=== PATIENT | male | born 1980 | race Caucasian/White ===

== ENCOUNTER 2021-01-05 15:26 | Outpatient (CLI) | payer OTHER, SELFPAY ==
--- NOTE | ~2021-01-05 | XR_ITS ---
EXAMINATION: XR hip LT min 2V DATE: 01/05/2021 15:48 INDICATION: Left hip pain. TECHNIQUE: 2 views of left hip were obtained. COMPARISON: None. FINDINGS: Bone alignment is normal. No fracture. There is mild left hip osteoarthritis. IMPRESSION: 1. Mild left hip osteoarthritis. Reviewed, dictated and finalized at location A.
== END 2021-01-05 15:27 | disposition home or self-care (01) ==
LOC: CHSIMG 15:29
PROVIDERS: PCP Nurse Practitioner Family; Visit Provider Nurse Practitioner Family
DX: M25.552 Pain in left hip (principal)
CPT/HCPCS: 73502

== ENCOUNTER 2024-07-04 12:21 | Outpatient (CLI) | payer OTHER, SELFPAY ==
--- NOTE | ~2024-07-04 | US_ITS ---
Testicular ultrasound with doppler. Indication: Other specified disorder of male genitalia. Technique: Real-time sonography the scrotum was performed. Color flow Doppler and Doppler spectral an alysis were performed. Findings: The testes are homogeneous in echotexture bilaterally. There is no evidence of an intrates ticular mass. The right testis measures 5.1 x 3.1 x 2.9 cm and the left 4.0 x 2.4 x 2.9 cm. There is color-flow seen to both testes. Arterial and venous spectral waveforms are seen in both testes. There is no sonographic evidence of torsion. The head of the epididymis is visualized bilaterally and is within normal limits. Large right hydrocele present. Minimal left hydrocele. Impression: No testicular mass or torsion. Very large right hydrocele. Minimal left hydrocele. Reviewed, dictated and finalized at [facility]. T [employer] [address] MAN Impression: No testicular mass or torsion. Very large right hydrocele. Minimal left hydrocele.
== END 2024-07-04 12:22 | disposition home or self-care (01) ==
LOC: CHSIMG 12:23
PROVIDERS: PCP Family Medicine; Visit Provider Family Medicine
DX: N50.89 Other specified disorders of the male genital organs (principal); N43.3 Hydrocele, unspecified
CPT/HCPCS: 76870; 93976

== ENCOUNTER 2024-08-26 17:16 | Emergency (ER) | payer OTHER, SELFPAY ==
--- OUTSIDE RECORDS SUMMARY | 2024-08-26 17:18 | XMS_ITS | Clinical Summary ---
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
[2024-08-26 17:53] VITALS: BP 185/113; PULSE 84; RESP 18; TEMP 36.6; O2SAT 99
--- NOTE | 2024-08-26 18:01 | ED.GENADULT ---
HPI - General Adult General Chief complaint: Urogenital-Male Stated complaint: Severe Pain Time Seen by Provider: 08/26/24 17:59 Source: patient Mode of arrival: ambulatory Limitations: no limitations History of Present Illness HPI narrative: 44 years old white male came to the ED with pain at the right scrotum/ testicle after injection of doxycycline and 10 cc of lidocaine into the testicles early today subsequently started having pain . Patient is telling me that he been diagnosed of right hydrocele April 2024 scheduled to see urologist on the of this month. Patient been draining the hydrocele since van today is the 3rd time. Today is the 1st time to inject with doxycycline and lidocaine. currently patient feeling a little better, declining any blood workup, imaging or a prescription of antibiotic. He denies any fever or chills or nausea or vomiting or abdominal pain or trouble urinating. Related Data Allergies Allergy/AdvReac Type Severity Reaction Status Date / Time No Known Allergies Allergy Verified 06/21/24 11:51 Review of Systems Review of Systems: All systems reviewed & are unremarkable except as noted in HPI and below PMFSH Surgical History Surgical History History of tonsillectomy Social History Social History Smoking status: Never smoker Alcohol intake: never Substance use: never Substance use type: does not use Living arrangements: with family Additional living arrangements comments: Girlfriend Occupation/Education: occupation Gender identity (if verbalized by the patient): Male Exam Narrative: General appearance: Well-developed, well-nourished Skin: Normal color Chest and respiratory: Airway patent, no respiratory distress, no accessory muscle use Heart: Regular rate/rhythm Abdomen: Soft, nontender, no organomegaly, quiet bowel sounds . Testicular exam showing diffuse tenderness and swelling of the right scrotum slightly erythematous compared to the left side, no discharge. Musculoskeletal: Normal range of motion, nontender back Neurologic: Alert and oriented ?3, SOUND ENGINEERING TECHNICIAN is normal as tested, no gross motor deficit Course Vital Signs Vital signs: Vital Signs Temperature 36.6 C 08/26/24 17:53 Pulse Rate 84 08/26/24 17:53 Respiratory Rate 18 08/26/24 17:53 Blood Pressure 185/113 H 08/26/24 17:53 Pulse Oximetry 99 08/26/24 17:53 Oxygen Delivery Room Air 08/26/24 17:53 Temperature 36.6 C 08/26/24 17:53 Pulse Rate 84 08/26/24 17:53 Respiratory Rate 18 08/26/24 17:53 Blood Pressure 185/113 H 08/26/24 17:53 Pulse Oximetry 99 08/26/24 17:53 Oxygen Delivery Room Air 08/26/24 17:53 Medical Decision Making MDM Narrative Medical decision making narrative: Patient presents with pain at the right testicle / scrotum after injection with doxycycline and lidocaine into the testicle. Vital signs showing blood pressure 185/113 physical examination consistent with diffuse tenderness and swelling of the right scrotum/ testicle Differential diagnosis include infection, hematoma, Patient declined any blood workup or imaging at this time because his pain is much better compared to early. A prescription of Cipro was ordered for the patient and he declined. . I declare that I have personally explained to the patient the risks and consequences involved in leaving this facility at this time. the benefits of continued treatment and/or hospitalization. And the alternatives. If any. to continued treatment and/or hospitalization. if applicable.I have not identified any psychosis, drugs, mental illness, or medical illness that alters decision-making capacity (reasoning abilities ). Differential Diagnosis Differential Diagnosis: As above Vital Signs Vital Signs: Vital Signs Temperature 36.6 C 08/26/24 17:53 Pulse Rate 84 08/26/24 17:53 Respiratory Rate 18 08/26/24 17:53 Blood Pressure 185/113 H 08/26/24 17:53 Pulse Oximetry 99 08/26/24 17:53 Oxygen Delivery Room Air 08/26/24 17:53 Temperature 36.6 C 08/26/24 17:53 Pulse Rate 84 08/26/24 17:53 Respiratory Rate 18 08/26/24 17:53 Blood Pressure 185/113 H 08/26/24 17:53 Pulse Oximetry 99 08/26/24 17:53 Oxygen Delivery Room Air 08/26/24 17:53 Critical Care Time Critical Care Time Critical Care Time: No Discharge Plan Discharge Clinical Impression: Pain in right testicle Patient Disposition: Left Against Medical Advice Condition: Guarded Prognosis Patient Language: Thai Prescriptions: New ciprofloxacin HCl [Cipro] 500 mg tablet 500 mg PO Q12H Qty: 20 0RF Follow-up/Referrals: Bryan Duff, [Primary Care Provider] -
--- OUTSIDE RECORDS SUMMARY | 2024-08-26 18:21 | XMS_ITS | Clinical Summary ---
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
--- NOTE | 2024-08-26 19:07 | PC.NURSE ---
On 08/26/24, the student, [gustavo joyce ], provided care and completed [facility] documentation on this patient. I have reviewed the student's documentation and agree with the findings.
== END 2024-08-26 18:20 | disposition left against medical advice (07) ==
LOC: CHSED 18:19
PROVIDERS: Emergency Provider Emergency Medicine; PCP Family Medicine
DX: N50.811 Right testicular pain (principal)
CPT/HCPCS: 99283

== ENCOUNTER 2024-08-28 13:51 | Emergency (ER) | payer OTHER, SELFPAY ==
--- NOTE | ~2024-08-28 | US_ITS ---
EXAMINATION: US scrotum doppler DATE: 08/28/2024 14:47 INDICATION: Scrotal swelling. TECHNIQUE: Grayscale and Doppler ultrasound images of the testes were obtained. COMPARISON: Ultrasound 07/04/2024 FINDINGS: The right testis measures 4.8 x 3.5 x 3.3 cm. The left testis measures 5.2 x 3.2 x 2.5 cm. There is normal vascular flow to both testes. The right epididymis is hypoechoic with increased vascu lar flow. The left epididymis is normal with normal vascular flow. There are large right and small le ft hydroceles. IMPRESSION: 1. Right-sided epididymitis. 2. Large right and small left hydroceles. Reviewed, dictated and finalized at location A. [facility]
[2024-08-28 13:51] VITALS: BP 165/92; PULSE 92; RESP 18; TEMP 36.6; O2SAT 98
--- OUTSIDE RECORDS SUMMARY | 2024-08-28 13:55 | XMS_ITS | Clinical Summary ---
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
--- NOTE | 2024-08-28 14:04 | ED_ITS ---
HPI - Male Genitourinary General Chief complaint: Urogenital-Male Stated complaint: rt flank pain Time Seen by Provider: 08/28/24 14:03 Source: patient Mode of arrival: ambulatory Limitations: no limitations History of Present Illness HPI Narrative: 44-year-old male with a history of right testicular hydrocele since April has been self draining his right testicle. On 08/26/2024 he drained his right testicle for the 3rd time with an IV needle and injected fish doxycycline and 10 cc of lidocaine into his testicle. Subsequently the patient developed pain and swelling of the right testicle for which he presented to this ED on 08/26/2024. the patient left AMA. He did not want blood work or an ultrasound. He presents today with -- worsening pain and swelling of the right testicle -- erythematous swelling of the entire scrotum which is worse on the right side. No fever or chills. Related Data Allergies Allergy/AdvReac Type Severity Reaction Status Date / Time No Known Allergies Allergy Verified 08/28/24 14:03 Review of Systems 2 Review of Systems: All systems reviewed & are unremarkable except as noted in HPI and below [facility] Surgical History Surgical History History of tonsillectomy Social History Social History Smoking status: Never smoker Alcohol intake: never Substance use: never Substance use type: does not use Living arrangements: with family Additional living arrangements comments: Girlfriend Occupation/Education: occupation Gender identity (if verbalized by the patient): Male Exam 2 Narrative: Afebrile. Const: General: cooperative, healthy appearing and no acute distress HENMT: Head: normal to inspection, normocephalic and atraumatic Ears: h earing grossly normal bilaterally and external ears normal Face/Nose/Sinus: N ormal external nose present and Normal nares present Face and sinus: normal facial exam Mouth: Yes Normal oral and palatal mucosa present, Yes lip normal and Yes tongue normal Throat: posterior oropharynx normal Eyes: General: appearance normal, both eyes and all related structures Neck: Neck: normal visual inspection, full ROM and no lymphadenopathy Chest: Chest palpation & inspection: normal inspection of the chest Resp: Effort & Inspection: normal respiratory effort Auscultation: clear to auscultation bilaterally Cardio: Rate: regular rate Rhythm: regular rhythm Heart sounds: S1 normal heart sound present and S2 normal heart sound present GI: Inspection: normal to inspection Other: : Penis: Yes normal penis and Yes other (Scrotum-- is erythematous. Tender on palpation. Tenderness of right testi) Meatus: meatus normal Scrotum: s crotum normal ( Erythematous), erythematous, scrotal swelling and other ( tenderness on palpation of the scrotum and the right testicle.) Back/Spine/Pelvis: Back: no CVA tenderness Skin: General skin exam: normal color and no rashes or lesions noted Neuro: General: oriented to person, oriented to place and oriented to time Extrem: General: normal to inspection, full ROM and capillary refill normal Course Course Emergency Course: Scrotal cellulitis-- will treat with Augmentin And follow-up with primary care physician right testicular pain-- ultrasound of the scrotum revealed large right hydrocele and right epididymitis Vital Signs Vital signs: Vital Signs Temperature 36.6 C 08/28/24 13:51 Pulse Rate 92 08/28/24 13:51 Respiratory Rate 18 08/28/24 13:51 Blood Pressure 165/92 H 08/28/24 13:51 Pulse Oximetry 98 08/28/24 13:51 Oxygen Delivery Room Air 08/28/24 13:51 Temperature 36.6 C 08/28/24 13:51 Pulse Rate 92 08/28/24 13:51 Respiratory Rate 18 08/28/24 13:51 Blood Pressure 165/92 H 08/28/24 13:51 Pulse Oximetry 98 08/28/24 13:51 Oxygen Delivery Room Air 08/28/24 13:51 MDM - Male Genitourinary MDM Narrative Medical decision making narrative: scrotal cellulitis right epididymitis right hydrocele Differential Diagnosis Differential diagnosis: Likely epididymitis and inguinal hernia Medical Records Attestation: I reviewed the patient's medical records. Lab Data Attestation: I reviewed the patient's lab results. 08/28/24 15:04 08/28/24 15:04 Labs: Lab Results 08/28/24 08/28/24 Range/Units 14:19 15:04 WBC 10.7 (4.8-10.8) K/mm3 RBC 5.85 (4.70-6.10) M/mm3 Hgb 17.1 (14.0-18.0) g/dL Hct 50.4 (40.0-54.0) % MCV 86.2 (78.0-102.0) fL MCH 29.2 (27.0-31.0) pg MCHC 33.9 (32-36) g/dL RDW 12.2 (11.6-14.4) % Plt Count 204 (150-420) K/mm3 MPV 10.0 (8.7-11.0) fl Immature Gran % (Auto) Not Reportable Neut % (Auto) Not Reportable Lymph % (Auto) Not Reportable Cross % (Auto) Not Reportable Eos % (Auto) Not Reportable Baso % (Auto) Not Reportable Lymph # (Auto) Not Reportable Cross # (Auto) Not Reportable Eos # (Auto) Not Reportable Baso # (Auto) Not Reportable Abs Immat Gran (auto) Not Reportable Absolute Neuts (auto) Not Reportable Absolute Nucleated RBC Not Reportable Total Counted 100 Neutrophils % (Manual) 84 H (46-73) % Band Neutrophils % 0 (0-6) % Lymphocytes % (Manual) 9 L (18-44) % Monocytes % (Manual) 7 (3-9) % Nucleated RBC % Not Reportable Abs Neuts (Manual) 8.98 H (1.3-6.7) K/mm3 Abs Lymphs (Manual) 0.96 L (1.1-4.5) K/mm3 Abs Monocytes (Manual) 0.74 (0.1-0.90) K/mm3 Platelet Estimate Adequate (Adequate) Schistocytes Not Reportable Sodium 144 (136-145) mmol/L Potassium 3.9 (3.5-5.1) mmol/L Chloride 104 (98-108) mmol/L Carbon Dioxide 29 (21-32) mmol/L Anion Gap 11 (4-12) mmol/L BUN 8 (7-18) mg/dL Creatinine 1.24 (0.70-1.30) mg/dL Estim Creat Clear Calc 91 ml/min Estimated GFR > 60 (59 - ) Glucose 105 H (70-99) mg/dL Calculated Osmolality 296 H (285-295) mOsm/kg Lactic Acid 1.2 (0.4-2.0) mmol/L Calcium 9.5 (8.5-10.1) mg/dL Total Bilirubin 1.5 H (0.00-1.00) mg/dL AST 17 (15-37) U/L ALT 44 (16-63) U/L Alkaline Phosphatase 100 (46-116) U/L Total Protein 8.3 H (6.4-8.2) g/dL Albumin 4.3 (3.4-5.0) g/dL Urine Color Yellow (Yellow) Urine Appearance Clear (Clear) Urine pH 6.0 (5.0-8.0) Ur Specific [place] 1.025 H (1.010-1.020) Urine Protein 1+ H (Negative) Urine Glucose (UA) Negative (Negative) Urine Ketones Trace H (Negative) Ur Blood (Man) Negative (Negative) Urine Nitrate Negative (Negative) Urine Bilirubin Negative (Negative) Urine Urobilinogen 1.0 (0.2-1.0) mg/dL Leukocyte Esterase Rfl Negative (Negative) ANNY/UL Urine RBC None seen (0-2) /hpf Urine WBC None seen (0-3) /hpf Urine Bacteria Trace (None) /hpf Urine Mucus Moderate H /lpf Discharge Plan Discharge Clinical Impression: Epididymitis, Cellulitis, scrotum Hydrocele Qualifiers: Hydrocele type: unspecified Qualified Code(s): N43.3 - Hydrocele, unspecified Patient Disposition: Home, Self-Care Condition: Stable Instructions: Antibiotic Form, Epididymitis (ED), Cellulitis (ED) Patient Language: Faroese Prescriptions: New amoxicillin-pot clavulanate 875-125 mg tablet 1 tablet PO Q12H Qty: 14 0RF No Action ciprofloxacin HCl [Cipro] 500 mg tablet 500 mg PO Q12H Qty: 20 0RF Follow-up/Referrals: Byran Duff DO [Primary Care Provider] - Time of Disposition: 15:46
--- OUTSIDE RECORDS SUMMARY | 2024-08-28 14:54 | XMS_ITS | Clinical Summary ---
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
[2024-08-28] MEDS: TETANUS,DIPHTHERIA,AC PERTUSSIS ADULT 0.5 ML (ADACEL) IM (15:06)
[2024-08-28 15:14] LABS: Hematocrit 50.4 % (40.0-54.0); Hemoglobin 17.1 g/dL (14.0-18.0); Mean Corpuscular HGB Conc 33.9 g/dL (32-36); Mean Corpuscular Hemoglobin 29.2 pg (27.0-31.0); Mean Corpuscular Volume 86.2 fL (78.0-102.0); Platelet Count Result 204 K/mm3 (150-420); Red Blood Count 5.85 M/mm3 (4.70-6.10); Red Cell Distribution Width 12.2 % (11.6-14.4); White Blood Count 10.7 K/mm3 (4.8-10.8)
[2024-08-28 15:26] LABS: Add Urine Microscopic? YES; Appearance Urine Clear (Clear); Bilirubin Urine Negative (Negative); Blood Urine Negative (Negative); Color Urine Yellow (Yellow); Glucose Urine UA Negative (Negative); Ketones Urine Trace (Negative); Leukocyte Esterase Ur Negative LEU/UL (Negative); Nitrate Urine Negative (Negative); Protein Urine 1+ (Negative); Specific Grav Ur 1.025 (1.010-1.020)
[2024-08-28 15:27] LABS: Alanine Aminotransferase 44 U/L (16-63); Albumin Level 4.3 g/dL (3.4-5.0); Alkaline Phosphatase 100 U/L (46-116); Anion Gap 11 mmol/L (4-12); Aspartate Amino Transferase 17 U/L (15-37); Bilirubin,Total 1.5 mg/dL (0.00-1.00); Blood Urea Nitrogen 8 mg/dL (7-18); Calcium 9.5 mg/dL (8.5-10.1); Carbon Dioxide 29 mmol/L (21-32); Chloride 104 mmol/L (98-108); Estimated CRCL calculation 91 ml/min; Estimated Glomerular Filt Rate > 60; Glucose 105 mg/dL (70-99); Osmolality Calculated 296 mOsm/kg (285-295); Potassium 3.9 mmol/L (3.5-5.1); Sodium 144 mmol/L (136-145); Total Protein 8.3 g/dL (6.4-8.2)
[2024-08-28 15:30] LABS: Lactic Acid Reflex 1.2 mmol/L (0.4-2.0)
[2024-08-28 15:35] LABS: RBC Urine None seen /hpf (0-2)
[2024-08-28 15:36] LABS: Bacteria Urine Trace /hpf; Mucus Urine Moderate /lpf; WBC Urine None seen /hpf (0-3)
[2024-08-28 15:38] LABS: Total Cells Counted 100
[2024-08-28 15:39] LABS: Band Neutrophils Percent 0 % (0-6); Lymphocytes Absolute Manual 0.96 K/mm3 (1.1-4.5); Lymphocytes Percent Manual 9 % (18-44); Monocytes Absolute Manual 0.74 K/mm3 (0.1-0.90); Monocytes Percent Manual 7 % (3-9); Neutrophils Absolute Manual 8.98 K/mm3 (1.3-6.7); Neutrophils Percent Manual 84 % (46-73); Platelet Estimate Adequate (Adequate)
[2024-08-28 16:00] VITALS: BP 126/77; PULSE 62; RESP 14; TEMP 36.8; O2SAT 96
== END 2024-08-28 16:00 | disposition home or self-care (01) ==
PROVIDERS: Emergency Provider Internal Medicine Critical Care Medicine; PCP Family Medicine
DX: N45.1 Epididymitis (principal); N43.3 Hydrocele, unspecified; Z23 Encounter for immunization
CPT/HCPCS: 36415; 76870; 80053; 81001; 83605; 85025; 87040; 90715; 93976; 96372; 99284